=== PATIENT | male | born 1995 | race Caucasian/White ===

== ENCOUNTER 2019-08-13 21:18 | Emergency (ER) | payer SELFPAY ==
[~2019-08-13] VITALS: Ht 162.6 cm; Wt 59.9 kg
[2019-08-13 21:20] VITALS: BP 125/75
--- NOTE | 2019-08-13 21:22 | NUR ---
to lobby a/w bed ambulatory
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
--- NOTE | 2019-08-13 22:22 | NUR ---
PT. AMBULATED TO BED 5.
[2019-08-13] MEDS ORDERED: LIDOCAINE MPF 1% 10 MG/ML VIAL INJ ONE (22:45)
--- NOTE | 2019-08-13 22:56 | NUR ---
DR. LAKHANI AT BEDSIDE EVALUATING PATIENT.
[2019-08-13 23:23] VITALS: BP 125/75
--- NOTE | 2019-08-13 23:23 | NUR ---
Patient discharged with v/s stable. Written and verbal after care instructions given and explained. Patient alert, oriented and verbalized understanding of instructions. Ambulatory with steady gait. All questions addressed prior to discharge. ID band removed. Patient advised to follow up with PMD. Rx of NAPROSYN given. Patient educated on indication of medication including possible reaction and side effects. Opportunity to ask questions provided and answered. DISCHARGED BY DR. LAKHANI
== END 2019-08-13 23:23 | disposition home or self-care (01) ==
LOC: MED 21:18
DX: S46.912A Strain of unspecified muscle, fascia and tendon at shoulder and upper arm level, left arm, initial encounter (principal); X58.XXXA Exposure to other specified factors, initial encounter; Y93.89 Activity, other specified; Y92.89 Other specified places as the place of occurrence of the external cause; Y99.8 Other external cause status
CPT/HCPCS: 73030; 99283; J2001; Q0092

== ENCOUNTER 2021-01-17 00:03 | Emergency (ER) | payer MEDICAID ==
[~2021-01-17] VITALS: Ht 162.6 cm; Wt 59.0 kg
[2021-01-17 00:15] VITALS: BP 127/77
--- NOTE | 2021-01-17 00:15 | NUR ---
PATIENT AMBULATED TO BED WITH STEADY GAIT.
--- NOTE | 2021-01-17 00:15 | NUR ---
PATIENT BIB SELF FOR C/O SOB, PAIN RATING 8/10. A & O X4. PATIENT REPORTS HE WAS RECENTLY ADMITTED FOR PNEUMONIA X 1 WEEK. HE DENIES CONTACT WITH COVID POSITIVE INDIVIDUALS AND RECENTLY TESTED NEGATIVE ON UNKNOWN DATE. PATIENT NOTED WITH LABORED, RETRACTED BREATHING. BREATH SOUNDS CLEAR BILATERALLY. O2 SATURATION 94% ON R.A. SKIN IS WARM, DRY AND INTACT. PATIENT IS RESTING IN BED, HOB ELEVATED. BED LOCKED AND IN LOWEST POSITION, BED RAIL X1. SEE COMPLETE ASSESSMENT FOR FURTHER DETAILS. MED HX: DENIES ALLERGIES: NKA
--- NOTE | 2021-01-17 00:48 | NUR ---
XRAY AT BEDSIDE.
--- NOTE | 2021-01-17 01:26 | NUR ---
Patient appears to be resting comfortably in bed. Vital Signs within normal limits. Respirations even, less labored. Patient states "I feel a lot better." Patient O2 96% on R.A. HOB elevated.
[2021-01-17] MEDS ORDERED: ALBUTEROL SULFATE/IPRATROPIU 3 ML SOL IH ONE (01:40)
[2021-01-17] MEDS ORDERED: methylPREDNISolone SS 125 MG in WATER STERILE 2 ML IV ONE (01:40)
[2021-01-17] MEDS ORDERED: WATER STERILE 10 ML MC ONE (01:59)
[2021-01-17] MEDS ORDERED: methylPREDNISolone SS 125 MG/2 ML VIAL ONE (01:59)
--- NOTE | 2021-01-17 02:18 | NUR ---
TX GIVEN - NO RESP DISTRESS NOTED
--- NOTE | 2021-01-17 02:20 | NUR ---
Patient appears to be resting comfortably in bed. Vital Signs within normal limits. Respirations even and unlabored. PATIENT REPORTS "I FEEL FINE."
--- NOTE | 2021-01-17 03:09 | NUR ---
Patient appears to be resting comfortably in bed. Vital Signs within normal limits. Respirations even and unlabored.
[2021-01-17] MEDS ORDERED: PRED20TA5 PO (03:33)
[2021-01-17] MEDS ORDERED: ALBU0.0912 IH (03:33)
[2021-01-17 03:44] VITALS: BP 132/75
--- NOTE | 2021-01-17 03:44 | NUR ---
Patient discharged with v/s stable. Written and verbal after care instructions given and explained. Patient alert, oriented and verbalized understanding of instructions. Ambulatory with steady gait. All questions addressed prior to discharge. ID band removed. Patient advised to follow up with PMD. Rx of ALBUTEROL SULFATE AND PREDNISONE given. Patient educated on indication of medication including possible reaction and side effects. Opportunity to ask questions provided and answered.
[2021-01-17] MEDS ORDERED: NAPR-54 PO (04:21)
== END 2021-01-17 03:44 | disposition home or self-care (01) ==
LOC: MED 00:03
DX: J20.9 Acute bronchitis, unspecified (principal); Z79.899 Other long term (current) drug therapy
CPT/HCPCS: 71045; 94640; 96374; 99283; J2930

== ENCOUNTER 2024-07-30 06:44 | Emergency (ER) | payer MEDICAID, OTHER ==
[~2024-07-30] VITALS: Ht 162.6 cm; Wt 65.8 kg
[~2024-07-30 06:44] MED LIST: ALBU0.0912 IH; NAPR-337 PO; PRED20TA5 PO
[2024-07-30 07:08] VITALS: BP 147/80; PULSE 84; RESP 18; TEMP 98.3; O2SAT 98
[2024-07-30] MEDS: IBUPROFEN 600 MG TAB PO ONE (07:50)
[2024-07-30 09:06] VITALS: BP 110/72; PULSE 75; RESP 16; TEMP 98; O2SAT 99
== END 2024-07-30 09:05 | disposition home or self-care (01) ==
LOC: MED 06:44
DX: S43.401A Unspecified sprain of right shoulder joint, initial encounter (principal); R03.0 Elevated blood-pressure reading, without diagnosis of hypertension; Z79.899 Other long term (current) drug therapy; V89.2XXA Person injured in unspecified motor-vehicle accident, traffic, initial encounter; Y93.89 Activity, other specified; Y92.89 Other specified places as the place of occurrence of the external cause; Y99.8 Other external cause status
CPT/HCPCS: 71101; 73030; 99284